=== PATIENT | male | born 2000 | race Caucasian/White ===

== ENCOUNTER 2019-05-27 21:58 | Emergency (ER) | payer SELFPAY ==
[~2019-05-27] VITALS: Wt 51.7 kg
== END 2019-05-28 01:08 | disposition home or self-care (01) ==
LOC: ED 21:58
DX: S00.83XA Contusion of other part of head, initial encounter (principal); V80.010A Animal-rider injured by fall from or being thrown from horse in noncollision accident, initial encounter; Y93.89 Activity, other specified; Y92.89 Other specified places as the place of occurrence of the external cause; Y99.8 Other external cause status

== ENCOUNTER 2020-12-08 08:46 | Emergency (ER) | payer OTHER ==
[~2020-12-08] VITALS: Wt 52.2 kg
== END 2020-12-08 09:12 | disposition home or self-care (01) ==
LOC: ED 08:46
DX: S93.402A Sprain of unspecified ligament of left ankle, initial encounter (principal); W55.19XA Other contact with horse, initial encounter; Y93.89 Activity, other specified; Y92.89 Other specified places as the place of occurrence of the external cause; Y99.8 Other external cause status

== ENCOUNTER 2021-06-05 10:52 | Emergency (ER) | payer OTHER ==
[~2021-06-05] VITALS: Ht 170.1 cm; Wt 52.6 kg
== END 2021-06-05 13:51 | disposition home or self-care (01) ==
LOC: ED 10:52
DX: S73.102A Unspecified sprain of left hip, initial encounter (principal); V80.010A Animal-rider injured by fall from or being thrown from horse in noncollision accident, initial encounter; Y93.89 Activity, other specified; Y92.89 Other specified places as the place of occurrence of the external cause; Y99.8 Other external cause status

== ENCOUNTER 2021-11-09 22:00 | Emergency (ER) | payer OTHER ==
[~2021-11-09] VITALS: Ht 152.4 cm
== END 2021-11-10 01:06 | disposition home or self-care (01) ==
LOC: ED 22:00
DX: S86.911A Strain of unspecified muscle(s) and tendon(s) at lower leg level, right leg, initial encounter (principal); V80.010A Animal-rider injured by fall from or being thrown from horse in noncollision accident, initial encounter; Y93.89 Activity, other specified; Y92.89 Other specified places as the place of occurrence of the external cause; Y99.8 Other external cause status

== ENCOUNTER 2023-05-02 11:33 | Emergency (ER) | payer OTHER ==
[2023-05-02] MEDS ORDERED: CEPHALEXIN500 M1 PO (13:01)
[2023-05-02] MEDS ORDERED: MELOXICAM15 MG PO (13:01)
== END 2023-05-02 13:57 | disposition home or self-care (01) ==
LOC: ED 11:33
DX: S90.02XA Contusion of left ankle, initial encounter (principal); W22.8XXA Striking against or struck by other objects, initial encounter; Y93.52 Activity, horseback riding; Y92.39 Other specified sports and athletic area as the place of occurrence of the external cause; Y99.8 Other external cause status

== ENCOUNTER 2024-03-19 11:01 | Emergency (ER) | payer OTHER ==
[~2024-03-19] VITALS: Ht 170.1 cm; Wt 72.6 kg
[~2024-03-19 11:01] MED LIST: CEPHALEXIN500 M1 PO; MELOXICAM15 MG PO
== END 2024-03-19 13:18 | disposition home or self-care (01) ==
LOC: ED 11:01
DX: S50.12XA Contusion of left forearm, initial encounter (principal); V80.010A Animal-rider injured by fall from or being thrown from horse in noncollision accident, initial encounter; Y93.89 Activity, other specified; Y92.89 Other specified places as the place of occurrence of the external cause; Y99.8 Other external cause status

== ENCOUNTER 2024-03-24 09:00 | Emergency (ER) | payer OTHER ==
[~2024-03-24] VITALS: Ht 170.1 cm; Wt 52.6 kg
[2024-03-24] MEDS ORDERED: Acetaminophen/Oxycodone 5 MG/325 MG TABLET PO ONE (09:05)
== END 2024-03-24 11:56 | disposition home or self-care (01) ==
LOC: ED
DX: S93.401A Sprain of unspecified ligament of right ankle, initial encounter (principal); S93.601A Unspecified sprain of right foot, initial encounter; S80.211A Abrasion, right knee, initial encounter; S90.811A Abrasion, right foot, initial encounter; V80.010A Animal-rider injured by fall from or being thrown from horse in noncollision accident, initial encounter; Y93.52 Activity, horseback riding; Y92.89 Other specified places as the place of occurrence of the external cause; Y99.8 Other external cause status